=== PATIENT | female | born 1970 | race Caucasian/White ===

== ENCOUNTER 2018-11-05 02:36 | Emergency (ER) | payer SELFPAY ==
[~2018-11-05] VITALS: Ht 167.6 cm; Wt 118.0 kg
[2018-11-05] MEDS ORDERED: TRAZODONE300 MG PO (03:05)
[2018-11-05] MEDS ORDERED: K-DUR/KLOR-CON20 MEQ PO (03:06)
[2018-11-05] MEDS ORDERED: LEVOTHYROXIN75 MC1 PO (03:07)
[2018-11-05] MEDS ORDERED: HYDROXYZ PAM25 MG PO (03:07)
[2018-11-05] MEDS ORDERED: ZESTRIL10 M1 PO (03:08)
[2018-11-05] MEDS ORDERED: VENLAFAXINE75 M2 PO (03:09)
[2018-11-05] MEDS ORDERED: TOPAMAX100 M1 PO (03:10)
[2018-11-05] MEDS ORDERED: HYDROCHLOROTH12.5 M1 PO (03:11)
[2018-11-05] MEDS ORDERED: BUSPIRONE15 MG PO (03:11)
[2018-11-05] MEDS ORDERED: ALLERGY10 M1 PO (03:12)
[2018-11-05] MEDS ORDERED: SM OMEPRAZOL20 MG PO (03:13)
[2018-11-05] MEDS ORDERED: DICYCLOMINE10 MG PO (03:15)
[2018-11-05 03:27] LABS: HEMATOCRIT 43.8 % (37.0-47.0); HEMOGLOBIN 13.8 g/dl (12.0-16.0); IMMATURE GRANULOCYTES 0.3 % (0.0-5.0); MEAN CELL VOLUME 96.1 fL CALC (80.0-100.0); MEAN CORPUSCULAR HGB 30.3 pG CALC (26.0-32.0); MEAN CORPUSCULAR HGB CONC 31.5 g/L CALC (32.0-36.0); NEUT# 8.21 thou/uL (2.00-7.15); RED BLOOD COUNT 4.56 mill/uL (4.20-5.60); RED CELL DISTRI WIDTH 13.2 % (11.5-15.5)
[2018-11-05 03:39] LABS: ALBUMIN 4.7 g/dL (3.2-5.0); ALKALINE PHOSPHATASE 128 u/l (38-126); ANION GAP 17 (6-22 (CALC)); BUN 13 mg/dL (7-17); BUN/CREATININE RATIO 13 (12-20 (CALC)); CARBON DIOXIDE 26 mmol/l (22-30); CHLORIDE 101 mmol/l (95-108); GFR 59 ML/MIN (>=60 (CALC)); GFR FOR AFR.AMER. > 60 ML/MIN (>=60 (CALC)); POTASSIUM 3.5 mmol/l (3.5-5.1); SGOT/AST 41 u/l (14-36); SODIUM 141 mmol/l (137-146); TOTAL PROTEIN 8.7 g/dL (6.3-8.2)
[2018-11-05 03:51] LABS: MYOGLOBIN 82 ng/mL (0 - 62)
[2018-11-05 04:17] LABS: URINE BLOOD DIPSTICK NEGATIVE (NEGATIVE); URINE COLOR YELLOW; URINE GLUCOSE - DIPSTICK NEGATIVE (NEGATIVE); URINE KETONE 40 mg/dL (NEGATIVE); URINE LEUK ESTERASE NEGATIVE (NEGATIVE); URINE NITRITE - DIPSTICK NEGATIVE (Negative); URINE PROTEIN - DIPSTICK 30 mg/dL (NEG-TRACE); URINE SPECIFIC GRAVITY 1.025
[2018-11-05 04:23] LABS: BARBITURATES NEGATIVE (NEGATIVE); COCAINE NEGATIVE (NEGATIVE); METHADONE NEGATIVE (NEGATIVE); OXCYCODONE NEGATIVE (NEGATIVE); TETRAHYDROCANNABIONOL NEGATIVE (NEGATIVE); TRICYLIC ANTIDEPRESSANTS NEGATIVE (NEGATIVE)
[2018-11-05 04:28] LABS: URINE BILIRUBIN - DIPSTICK TRACE (NEGATIVE)
[2018-11-05 04:34] LABS: URINE BACTERIA MODERATE hpf; URINE MUCUS MANY hpf (NONE-FEW); URINE RBC 0-2 RBC/hpf (0-5); URINE SQUAMOUS EPITHELIAL CELL RARE EPI/hpf (0-FEW)
[2018-11-05 04:35] LABS: URINE COARSE GRANULAR CAST FEW lpf; URINE FINE GRAN CAST RARE lpf; URINE HYALINE CAST FEW lpf (NONE-RARE)
[2018-11-05] MEDS ORDERED: CIPROFLOXACN500 MG PO (05:11)
[2018-11-05 05:43] VITALS: BP 123/75
[2018-11-06] MEDS ORDERED: XANAX0.5 MG PO (21:31)
== END 2018-11-05 06:22 | disposition home or self-care (01) | DRG 880 ==
LOC: ED 02:36
PROVIDERS: Emergency Medicine
DX: F41.0 Panic disorder [episodic paroxysmal anxiety] (principal); I10 Essential (primary) hypertension; M79.7 Fibromyalgia; M06.9 Rheumatoid arthritis, unspecified; J44.9 Chronic obstructive pulmonary disease, unspecified

== ENCOUNTER 2018-11-06 20:26 | Emergency (ER) | payer SELFPAY ==
[~2018-11-06] VITALS: Ht 167.6 cm; Wt 109.0 kg
[~2018-11-06 20:26] MED LIST: ALLERGY10 M1 PO; BUSPIRONE15 MG PO; CIPROFLOXACN500 MG PO; DICYCLOMINE10 MG PO; HYDROCHLOROTH12.5 M1 PO; HYDROXYZ PAM25 MG PO; K-DUR/KLOR-CON20 MEQ PO; LEVOTHYROXIN75 MC1 PO; SM OMEPRAZOL20 MG PO; TOPAMAX100 M1 PO; TRAZODONE300 MG PO; VENLAFAXINE75 M2 PO; ZESTRIL10 M1 PO
[2018-11-06] MEDS ORDERED: XANAX0.5 MG PO (21:31)
[2018-11-06 21:49] VITALS: BP 117/84
== END 2018-11-06 22:00 | disposition home or self-care (01) | DRG 880 ==
LOC: ED 20:26
DX: F41.0 Panic disorder [episodic paroxysmal anxiety] (principal); I10 Essential (primary) hypertension; M79.7 Fibromyalgia; M06.9 Rheumatoid arthritis, unspecified; J44.9 Chronic obstructive pulmonary disease, unspecified